=== PATIENT | male | born 1955 | race Caucasian/White ===

== ENCOUNTER 2022-01-26 11:12 | Outpatient (REF) | payer OTHER, SELFPAY ==
--- NOTE | ~2022-01-26 | US_ITS ---
EXAMINATION: US RETROPERITONEAL LIMITED (AORTA) CLINICAL INFORMATION: History of smoking. COMPARISON: None TECHNIQUE: Han-scale, color Doppler and spectral Doppler evaluation of the abdominal aorta. FINDINGS: There is mild dilatation of the upper abdominal aorta at 3.5 cm. The measurements of the aorta in maximum AP and transverse dimensions respectively are as follows: Proximal: 3.3 x 3.5 cm. Mid: 2.5 x 2.6 cm. Distal: 2.2 x 2.4 cm. PSV: 84 cm/s. The measurements of the common iliac arteries in maximum AP and TRV dimensions are as follows: Right Common Iliac Artery: 1.5 x 1.5 cm. Left Common Iliac Artery: 1.6 x 1.5 cm. US/US abdominal aortic aneurysm IMPRESSION: Mild dilatation of the upper abdominal aorta at 3.5 cm.
== END 2022-01-26 11:13 | disposition home or self-care (01) ==
LOC: HO.US 11:12
PROVIDERS: PCP Internal Medicine; Visit Provider Internal Medicine
DX: Z13.6 Encounter for screening for cardiovascular disorders (principal)
CPT/HCPCS: 76706